=== PATIENT | female | born 1990 | race American Indian/Alaskan Native ===

== ENCOUNTER 2016-08-03 00:12 | Emergency (ER) | payer OTHER ==
[2016-08-03 01:06] LABS: Basophils % (Auto) 1.7 % (0.0-1.8); Eosinophils % (Auto) 1.3 % (0.0-4.3); Hematocrit 35.8 % (30.3-42.9); Hemoglobin 12.4 gm/dl (10.1-14.3); Mean Corpuscular HGB Conc 35 % (30-34); Mean Corpuscular Hemoglobin 31 pg (28-32); Mean Corpuscular Volume 88 fl (79-97); Platelet Count 321 K/mm3 (140-440); Red Blood Count 4.05 M/mm3 (3.65-5.03); Red Cell Distribution Width 13.6 % (13.2-15.2); White Blood Count 11.6 K/mm3 (4.5-11.0)
[2016-08-03 01:22] LABS: Bilirubin,Urine NEG (Negative); Blood,Urine NEG (Negative); Ketones,Urine 80 mg/dL (Negative); Leukocyte Esterase,Urine SM (Negative); Mucus,Urine 3+ /HPF; Nitrite,Urine NEG (Negative); Protein,Urine <15 mg/dL mg/dL (Negative); Urobilinogen,Urine < 2.0 mg/dL (<2.0)
[2016-08-03 01:29] LABS: Alanine Aminotransferase 8 units/L (7-56); Albumin 4.3 g/dL (3.9-5); Albumin/Globulin Ratio 1.4 %; Alkaline Phosphatase 60 units/L (35-129); Anion Gap 20 mmol/L; Bilirubin,Total < 0.20 mg/dL (0.1-1.2); Blood Urea Nitrogen 9 mg/dL (7-17); Calcium 9.2 mg/dL (8.4-10.2); Carbon Dioxide 20 mmol/L (22-30); Chloride 98.6 mmol/L (98-107); Glucose 97 mg/dL (65-100); Lipase 12 units/L (13-60); Potassium 3.5 mmol/L (3.6-5.0); Sodium 135 mmol/L (137-145); Total Protein 7.4 g/dL (6.3-8.2)
--- NOTE | 2016-08-03 03:19 | Ultrasound Report ---
FINAL REPORT PROCEDURE: US OB \T\lt; = 14 WEEKS FETUS TECHNIQUE: Real-time transabdominal sonography of the uterus, placenta, amniotic fluid, adnexa, and fetus was performed with image documentation. Measurements were obtained to determine age/size. M-mode Doppler was used to document heartbeat. CPT 81372 HISTORY: abd pn COMPARISON: No prior studies are available for comparison. FINDINGS: CRL: 18.1 mm, which corresponds to a gestational age of: 8 weeks, 2 days. Yolk Sac: Normal. Embryonic Cardiac Activity: 163 beats per minute Gestational Sac: Normal. Amniotic fluid: Normal. Cervix: Normal. Right Ovary: Normal. Left Ovary: Normal. Estimated delivery date: March 13, 2017 Uterus and adnexa: Normal. IMPRESSION: Single live intrauterine gestation at approximately 8 weeks and 2 days. EDC by US March 13, 2017
--- NOTE | 2016-08-03 03:19 | Ultrasound Report ---
FINAL REPORT PROCEDURE: US OB TRANSVAGINAL TECHNIQUE: Real-time TRANSVAGINAL sonography of the uterus, placenta, amniotic fluid, adnexa, and fetus was performed with image documentation. Measurements were obtained to determine age/size. M-mode Doppler was used to document heartbeat. HISTORY: abd pn COMPARISON: No prior studies are available for comparison. FINDINGS: CRL: 18.1 mm, which corresponds to a gestational age of: 8 weeks, 2 days. Yolk Sac: Normal. Embryonic Cardiac Activity: 163 beats per minute Gestational Sac: Normal. Amniotic fluid: Normal. Cervix: Normal. Right Ovary: Normal. Left Ovary: Normal. Estimated delivery date: March 13, 2017 Uterus and adnexa: Normal. IMPRESSION: Single live intrauterine gestation at approximately 8 weeks and 2 days. EDC by US March 13, 2017
[2016-08-03] MEDS ORDERED: NACL 0.9% 1000 ML 1,000 ML ONE (08:09)
[2016-08-03] MEDS ORDERED: ZOFRAN ONE (08:21)
[2016-08-03] MEDS ORDERED: ZOFRAN IV ONE (08:35)
--- NOTE | 2016-08-03 08:36 | Emergency Department Report ---
ED General Adult HPI - General Chief complaint: Abdominal Pain Stated complaint: SEVERE DEHYDRATION Time Seen by Provider: 08/03/16 08:01 Source: patient, RN notes reviewed Mode of arrival: Ambulatory Limitations: No Limitations - History of Present Illness Initial comments: This is a 26-year-old female. She is previously unknown to me. She is 2, para 1. Last menstrual period is June 11. Has a past medical history of hyperemesis gravidarum. Patient presents to the ER with nausea, vomiting, weakness, unintentional weight loss. She reports that it feels similar to prior episode of hyperemesis gravidarum. The patient denies abdominal pain. She admits to multiple episodes of nausea, vomiting and diarrhea. She denies vaginal bleeding. She denies irritative and obstructive urinary symptoms. She denies chest pain or shortness of breath. Her symptoms worsen when she eats and drinks. They decrease with rest. -: Gradual, days(s) Severity scale (0 -10): 0 Consistency: intermittent Improves with: rest Worsens with: eating Associated Symptoms: malaise, nausea/vomiting, weakness. denies: chest pain - Related Data Previous Rx's Medication Instructions Recorded Last Taken Type Doxylamine/Pyridoxine HCl 1 each PO QHS PRN #30 tablet. 08/03/16 Unknown Rx [Heriberto Hernandez 10-10 mg Tablet] Lulú Root [Lulú] 250 mg PO QID PRN #30 capsule 08/03/16 Unknown Rx Vit W-Ca,Fe,FA(<1 mg) 1 each PO QDAY #30 tablet 08/03/16 Unknown Rx [ Vitamins] Allergies Allergy/AdvReac Type Severity Reaction Status Date / Time sea food Allergy Headache Uncoded 08/03/16 00:30 ED Review of Systems ROS: Stated complaint: SEVERE DEHYDRATION Other details as noted in HPI Constitutional: denies: fever, malaise Eyes: denies: vision change ENT: denies: epistaxis Respiratory: denies: cough Cardiovascular: denies: chest pain Gastrointestinal: nausea, vomiting Genitourinary: as per HPI. denies: dysuria Musculoskeletal: as per HPI Skin: as per HPI Neurological: as per HPI Psychiatric: as per HPI ED Past Medical Hx - Past Medical History Previous Medical History?: No - Surgical History Past Surgical History?: No - Social History Smoking Status: Never Smoker Substance Use Type: Marijuana - Medications Home Medications: Home Medications Medication Instructions Recorded Confirmed Last Taken Type Doxylamine/Pyridoxine HCl 1 each PO QHS PRN #30 tablet. 08/03/16 Unknown Rx [Diclegis Dr 10-10 mg Tablet] Lulú Root [Lulú] 250 mg PO QID PRN #30 capsule 08/03/16 Unknown Rx Vit W-Ca,Fe,FA(<1 mg) 1 each PO QDAY #30 tablet 08/03/16 Unknown Rx [ Vitamins] ED Physical Exam - General Limitations: No Limitations General appearance: alert, in no apparent distress - Head Head exam: Present: atraumatic, normocephalic - Eye Eye exam: Present: normal appearance, EOMI. Absent: nystagmus - ENT ENT exam: Present: normal exam, normal orophraynx, mucous membranes moist, normal external ear exam - Neck Neck exam: Present: normal inspection, full ROM. Absent: tenderness, meningismus - Respiratory Respiratory exam: Present: normal lung sounds bilaterally. Absent: respiratory distress, wheezes, rales, rhonchi, stridor, chest wall tenderness, accessory muscle use, decreased breath sounds, prolonged expiratory - Cardiovascular Cardiovascular Exam: Present: regular rate, normal rhythm, normal heart sounds. Absent: bradycardia, tachycardia, irregular rhythm, systolic murmur, diastolic murmur, rubs, gallop - GI/Abdominal GI/Abdominal exam: Present: soft, normal bowel sounds. Absent: distended, tenderness, guarding, rebound, rigid, pulsatile mass - Extremities Exam Extremities exam: Present: normal inspection, full ROM, normal capillary refill. Absent: pedal edema, joint swelling, calf tenderness - Back Exam Back exam: Present: normal inspection, full ROM. Absent: tenderness, CVA tenderness (R), CVA tenderness (L), muscle spasm, paraspinal tenderness, vertebral tenderness - Neurological Exam Neurological exam: Present: alert, oriented X3, normal gait, other (Extraocular movements intact. Tongue midline. No facial droop. Facial sensation intact to light touch in the V1, V2, V3 distribution bilaterally. 5 and 5 strength in 4 extremities.. Sensation is intact to light touch in 4 extremities.). Absent : motor sensory deficit - Psychiatric Psychiatric exam: Present: normal affect, normal mood - Skin Skin exam: Present: warm, dry, intact, normal color. Absent: rash ED Course Vital Signs 08/03/16 08/03/16 08/03/16 00:15 07:59 08:00 Temperature 98.2 F 97.6 F Pulse Rate 70 65 Respiratory 18 18 Rate Blood Pressure 124/84 116/68 [Right] O2 Sat by Pulse 99 100 100 Oximetry 08/03/16 10:51 Temperature 97.9 F Pulse Rate 62 Respiratory 16 Rate Blood Pressure 120/82 [Right] O2 Sat by Pulse 100 Oximetry - Reevaluation(s) Reevaluation #1: 08/03/16 09:08 Differential diagnosis: Emesis gravidarum, dehydration and , incidental Assessment and plan: 26-year-old female who is found to be incidentally , she did not know that she was , with probable nausea and vomiting of , possible mild component of hyperemesis. She is afebrile with reassuring vital signs, denies abdominal pain to me, and there is a benign abdominal examination. Laboratory studies are unremarkable, obstetric ultrasound demonstrates appropriate interim . The patient will be treated with D5 half normal, and Zofran. Urinalysis demonstrates ketones in the urine, suggestive of dehydration 08/03/16 09:09 Reevaluation #2: 08/03/16 10:11 Patient feels improved. She is tolerating liquid feeds. She will be discharged at this time. ED Medical Decision Making - Lab Data Result diagrams: 08/03/16 00:46 08/03/16 00:46 Vital Signs 08/03/16 08/03/16 08/03/16 00:15 07:59 08:00 Temperature 98.2 F 97.6 F Pulse Rate 70 65 Respiratory 18 18 Rate Blood Pressure 124/84 116/68 [Right] O2 Sat by Pulse 99 100 100 Oximetry Lab Results 08/03/16 08/03/16 08/03/16 Range/Units 00:46 00:46 00:46 WBC 11.6 H (4.5-11.0) K/mm3 RBC 4.05 (3.65-5.03) M/mm3 Hgb 12.4 (10.1-14.3) gm/dl Hct 35.8 (30.3-42.9) % MCV 88 (79-97) fl MCH 31 (28-32) pg MCHC 35 H (30-34) % RDW 13.6 (13.2-15.2) % Plt Count 321 (140-440) K/mm3 Lymph % (Auto) 20.2 (13.4-35.0) % Swain % (Auto) 5.9 (0.0-7.3) % Eos % (Auto) 1.3 (0.0-4.3) % Baso % (Auto) 1.7 (0.0-1.8) % Lymph # 2.3 (1.2-5.4) K/mm3 Swain # 0.7 (0.0-0.8) K/mm3 Eos # 0.2 (0.0-0.4) K/mm3 Baso # 0.2 H (0.0-0.1) K/mm3 Seg Neutrophils % 70.9 H (40.0-70.0) % Seg Neutrophils # 8.2 H (1.8-7.7) K/mm3 Sodium 135 L (137-145) mmol/L Potassium 3.5 L (3.6-5.0) mmol/L Chloride 98.6 (98-107) mmol/L Carbon Dioxide 20 L (22-30) mmol/L Anion Gap 20 mmol/L BUN 9 (7-17) mg/dL Creatinine 0.5 L (0.7-1.2) mg/dL Estimated GFR > 60 ml/min BUN/Creatinine Ratio 18.00 % Glucose 97 (65-100) mg/dL Calcium 9.2 (8.4-10.2) mg/dL Total Bilirubin < 0.20 (0.1-1.2) mg/dL AST 10 (5-40) units/L ALT 8 (7-56) units/L Alkaline Phosphatase 60 (35-129) units/L Total Protein 7.4 (6.3-8.2) g/dL Albumin 4.3 (3.9-5) g/dL Albumin/Globulin Ratio 1.4 % Lipase 12 L (13-60) units/L HCG, Qual Positive (Negative) HCG, Quant (0-4) mIU/mL Urine Color (Yellow) Urine Turbidity (Clear) Urine pH (5.0-7.0) Ur Specific [place] (1.003-1.030) Urine Protein (Negative) mg/dL Urine Glucose (UA) (Negative) mg/dL Urine Ketones (Negative) mg/dL Urine Blood (Negative) Urine Nitrite (Negative) Urine Bilirubin (Negative) Urine Urobilinogen (<2.0) mg/dL Ur Leukocyte Esterase (Negative) Urine WBC (Auto) (0.0-6.0) /HPF Urine RBC (Auto) (0.0-6.0) /HPF U Epithel Cells (Auto) (0-13.0) /HPF Amorphous Crystals Urine Mucus /HPF 08/03/16 08/03/16 Range/Units 00:46 Unknown WBC (4.5-11.0) K/mm3 RBC (3.65-5.03) M/mm3 Hgb (10.1-14.3) gm/dl Hct (30.3-42.9) % MCV (79-97) fl MCH (28-32) pg MCHC (30-34) % RDW (13.2-15.2) % Plt Count (140-440) K/mm3 Lymph % (Auto) (13.4-35.0) % [place] % (Auto) (0.0-7.3) % Eos % (Auto) (0.0-4.3) % Baso % (Auto) (0.0-1.8) % Lymph # (1.2-5.4) K/mm3 [place] # (0.0-0.8) K/mm3 Eos # (0.0-0.4) K/mm3 Baso # (0.0-0.1) K/mm3 Seg Neutrophils % (40.0-70.0) % Seg Neutrophils # (1.8-7.7) K/mm3 Sodium (137-145) mmol/L Potassium (3.6-5.0) mmol/L Chloride (98-107) mmol/L Carbon Dioxide (22-30) mmol/L Anion Gap mmol/L BUN (7-17) mg/dL Creatinine (0.7-1.2) mg/dL Estimated GFR ml/min BUN/Creatinine Ratio % Glucose (65-100) mg/dL Calcium (8.4-10.2) mg/dL Total Bilirubin (0.1-1.2) mg/dL AST (5-40) units/L ALT (7-56) units/L Alkaline Phosphatase (35-129) units/L Total Protein (6.3-8.2) g/dL Albumin (3.9-5) g/dL Albumin/Globulin Ratio % Lipase (13-60) units/L HCG, Qual (Negative) HCG, Quant 77171 H (0-4) mIU/mL Urine Color Yellow (Yellow) Urine Turbidity Slightly-cloudy (Clear) Urine pH 7.0 (5.0-7.0) Ur Specific [place] 1.025 (1.003-1.030) Urine Protein <15 mg/dl (Negative) mg/dL Urine Glucose (UA) Neg (Negative) mg/dL Urine Ketones 80 (Negative) mg/dL Urine Blood Neg (Negative) Urine Nitrite Neg (Negative) Urine Bilirubin Neg (Negative) Urine Urobilinogen < 2.0 (<2.0) mg/dL Ur Leukocyte Esterase Sm (Negative) Urine WBC (Auto) 9.0 H (0.0-6.0) /HPF Urine RBC (Auto) 2.0 (0.0-6.0) /HPF U Epithel Cells (Auto) 19.0 H (0-13.0) /HPF Amorphous Crystals 1+ Urine Mucus 3+ /HPF - Radiology Data Radiology results: report reviewed, image reviewed Obstetrics ultrasound demonstrates an intrauterine gestation at 8 weeks and 2 days, appropriate heartbeat Critical care attestation.: If time is entered above; I have spent that time in minutes in the direct care of this critically ill patient, excluding procedure time. ED Disposition Clinical Impression: Nausea and vomiting during Disposition: DC-01 TO HOME OR SELFCARE Is pt being admited?: No Does the pt Need Aspirin: No Condition: Stable Instructions: Hyperemesis Gravidarum (ED) Additional Instructions: Take the medications as directed. Follow up with an [facility] doctor as soon as possible to start care. Return to the ER right away with severe pain, intractable nausea or vomiting, inability to tolerate fluids, liquid feeds, fevers, chills, chest pain or shortness of breath. Prescriptions: Doxylamine/Pyridoxine HCl [Heriberto Hernandez 10-10 mg Tablet] 1 each PO QHS PRN #30 tablet. PRN Reason: Nausea Lulú Root [Lulú] 250 mg PO QID PRN #30 capsule PRN Reason: Nausea Vit W-Ca,Fe,FA(<1 mg) [ Vitamins] 1 each PO QDAY #30 tablet Referrals: PRIMARY CARE, [Primary Care Provider] - 3-5 Days [facility] [Provider Group] - 3-5 Days [facility] [Provider Group] - 3-5 Days [facility] [Provider Group] - 3-5 Days Forms: Work/School Release Form(ED)
[2016-08-03] MEDS ORDERED: D5/0.45NS 1,000 ML IV SCH (09:00)
[2016-08-03 10:51] VITALS: BP 120/82
== END 2016-08-03 10:53 | disposition home or self-care (01) ==
LOC: ED 00:12
DX: O21.9 Vomiting of pregnancy, unspecified (principal); R11.0 Nausea; F12.90 Cannabis use, unspecified, uncomplicated; Z3A.08 8 weeks gestation of pregnancy; Z91.013 Allergy to seafood
CPT/HCPCS: 36415; 76801; 76817; 80053; 81001; 83690; 84702; 84703; 85025; 96374; 99284; J2405; J7030

== ENCOUNTER 2016-08-09 23:09 | Emergency (ER) | payer SELFPAY ==
[2016-08-10] MEDS ORDERED: ZOFRAN ODT PO ONE (00:31)
[2016-08-10 01:03] LABS: Basophils % (Auto) 0.6 % (0.0-1.8); Eosinophils % (Auto) 0.9 % (0.0-4.3); Hematocrit 38.9 % (30.3-42.9); Hemoglobin 13.5 gm/dl (10.1-14.3); Mean Corpuscular HGB Conc 35 % (30-34); Mean Corpuscular Hemoglobin 31 pg (28-32); Mean Corpuscular Volume 89 fl (79-97); Platelet Count 361 K/mm3 (140-440); Red Blood Count 4.37 M/mm3 (3.65-5.03); Red Cell Distribution Width 13.3 % (13.2-15.2)
[2016-08-10 01:22] LABS: Anion Gap 16 mmol/L; Blood Urea Nitrogen 7 mg/dL (7-17); Calcium 9.5 mg/dL (8.4-10.2); Carbon Dioxide 27 mmol/L (22-30); Chloride 95.6 mmol/L (98-107); Glucose 92 mg/dL (65-100); Sodium 136 mmol/L (137-145)
[2016-08-10 01:58] LABS: Bacteria,Urine 1+ /HPF (Negative); Bilirubin,Urine NEG (Negative); Blood,Urine NEG (Negative); Ketones,Urine 20 mg/dL (Negative); Leukocyte Esterase,Urine MOD (Negative); Mucus,Urine 3+ /HPF; Nitrite,Urine NEG (Negative)
[2016-08-10 10:37] VITALS: BP 92/52
[2016-08-10] MEDS ORDERED: K-DUR PO ONE (10:42)
[2016-08-10] MEDS ORDERED: NACL 0.9% 1000 ML 1,000 ML IV ONE (10:42)
--- NOTE | 2016-08-10 11:18 | Emergency Department Report ---
ED General Adult HPI - General Chief complaint: Abdominal Pain Stated complaint: L FLANK PAIN Time Seen by Provider: 08/10/16 10:08 Source: patient Mode of arrival: Ambulatory Limitations: No Limitations - History of Present Illness Initial comments: Patient states that she was seen here 2 weeks ago and informed that she was . She has a 8 week gestation on ultrasound which showed no abnormality. She states that she always has vomiting early in . She has been vomiting intermittently but not recurrently. She was given Zofran for nausea on her arrival here. The triage note states left flank pain yesterday. However, the patient states that she is just had some abdominal cramping and no left flank pain. She denies vaginal bleeding or discharge. She denies dysuria. Patient tells me that when she was at work last night she had an episode of tingling in her fingertips and lips. She was aware of her heart racing and probably she was breathing rapidly. She states that her rapid breathing and heart rate resolved fairly quickly. However she still has some tingling sensation intermittently but not currently. She's had no recent fever or chills. She denies headaches or any neurological change otherwise. -: Gradual Severity scale (0 -10): 0 Consistency: intermittent Improves with: none Worsens with: none Associated Symptoms: denies other symptoms (except as above described) Treatments Prior to Arrival: none - Related Data Previous Rx's Medication Instructions Recorded Last Taken Type Doxylamine/Pyridoxine HCl 1 each PO QHS PRN #30 tablet. 08/03/16 Unknown Rx [Heriberto Hernandez 10-10 mg Tablet] Lulú Root [Lulú] 250 mg PO QID PRN #30 capsule 08/03/16 Unknown Rx Vit W-Ca,Fe,FA(<1 mg) 1 each PO QDAY #30 tablet 08/03/16 Unknown Rx [ Vitamins] Allergies Allergy/AdvReac Type Severity Reaction Status Date / Time sea food Allergy Headache Uncoded 08/03/16 00:30 ED Review of Systems ROS: Stated complaint: L FLANK PAIN Other details as noted in HPI Constitutional: denies: chills, fever Eyes: denies: eye pain, eye discharge, vision change ENT: denies: ear pain, throat pain Respiratory: denies: cough, shortness of breath, wheezing Cardiovascular: denies: chest pain, palpitations Endocrine: no symptoms reported Gastrointestinal: nausea, vomiting. denies: abdominal pain, diarrhea Genitourinary: denies: urgency, dysuria, discharge Musculoskeletal: denies: back pain, joint swelling, arthralgia Skin: denies: rash, lesions Neurological: denies: headache, weakness, paresthesias Psychiatric: denies: anxiety, depression Hematological/Lymphatic: denies: easy bleeding, easy bruising ED Past Medical Hx - Past Medical History Previous Medical History?: No - Surgical History Past Surgical History?: No - Social History Smoking Status: Never Smoker Substance Use Type: None - Medications Home Medications: Home Medications Medication Instructions Recorded Confirmed Last Taken Type Doxylamine/Pyridoxine HCl 1 each PO QHS PRN #30 tablet.dr 08/03/16 Unknown Rx [Diclegis Dr 10-10 mg Tablet] Lulú Root [Lulú] 250 mg PO QID PRN #30 capsule 08/03/16 Unknown Rx Vit W-Ca,Fe,FA(<1 mg) 1 each PO QDAY #30 tablet 08/03/16 Unknown Rx [ Vitamins] ED Physical Exam - General Limitations: No Limitations General appearance: alert, in no apparent distress - Head Head exam: Present: atraumatic, normocephalic - Eye Eye exam: Present: normal appearance. Absent: scleral icterus - ENT ENT exam: Present: normal exam, mucous membranes moist - Neck Neck exam: Present: normal inspection. Absent: tenderness, meningismus - Respiratory Respiratory exam: Present: normal lung sounds bilaterally. Absent: respiratory distress - Cardiovascular Cardiovascular Exam: Present: regular rate, normal rhythm. Absent: systolic murmur, diastolic murmur, rubs, gallop - GI/Abdominal GI/Abdominal exam: Present: soft, normal bowel sounds. Absent: distended, tenderness, guarding, rebound, rigid - Extremities Exam Extremities exam: Present: normal inspection - Back Exam Back exam: Present: normal inspection - Neurological Exam Neurological exam: Present: alert, oriented X3, CN II-XII intact. Absent: motor sensory deficit - Psychiatric Psychiatric exam: Present: normal affect, normal mood - Skin Skin exam: Present: warm, dry, intact, normal color. Absent: rash ED Course Vital Signs 08/10/16 08/10/16 08/10/16 00:26 05:41 06:52 Temperature 98.4 F Pulse Rate 61 64 Respiratory 16 12 Rate Blood Pressure 113/84 118/77 Blood Pressure 113/84 [Left] O2 Sat by Pulse 100 100 100 Oximetry 08/10/16 08/10/16 08/10/16 07:00 07:10 07:20 Temperature Pulse Rate Respiratory Rate Blood Pressure 115/72 118/76 122/79 Blood Pressure [Left] O2 Sat by Pulse 100 100 100 Oximetry 08/10/16 08/10/16 08/10/16 07:30 07:36 07:40 Temperature Pulse Rate Respiratory 12 Rate Blood Pressure 112/70 112/70 Blood Pressure [Left] O2 Sat by Pulse 100 100 100 Oximetry 08/10/16 08/10/16 08/10/16 07:50 08:00 08:10 Temperature Pulse Rate Respiratory Rate Blood Pressure 99/62 99/62 103/64 Blood Pressure [Left] O2 Sat by Pulse 100 55 L 100 Oximetry 08/10/16 08/10/16 08/10/16 08:20 08:31 08:41 Temperature Pulse Rate Respiratory Rate Blood Pressure 106/72 112/70 105/63 Blood Pressure [Left] O2 Sat by Pulse 100 100 100 Oximetry 08/10/16 08/10/16 08/10/16 08:51 09:00 09:11 Temperature Pulse Rate Respiratory Rate Blood Pressure 98/62 108/70 108/70 Blood Pressure [Left] O2 Sat by Pulse 100 99 100 Oximetry 08/10/16 08/10/16 08/10/16 09:21 09:30 09:41 Temperature Pulse Rate Respiratory Rate Blood Pressure 105/62 103/65 98/62 Blood Pressure [Left] O2 Sat by Pulse 100 100 98 Oximetry 08/10/16 08/10/16 08/10/16 09:51 10:00 10:11 Temperature Pulse Rate Respiratory Rate Blood Pressure 106/66 105/82 105/82 Blood Pressure [Left] O2 Sat by Pulse 100 100 100 Oximetry 08/10/16 10:21 Temperature Pulse Rate Respiratory Rate Blood Pressure 92/52 Blood Pressure [Left] O2 Sat by Pulse 100 Oximetry - Reevaluation(s) Reevaluation #1: Given IV fluids and oral potassium. Patient was discharged in good condition and her symptoms resolved. 08/10/16 11:18 ED Medical Decision Making - Lab Data Result diagrams: 08/10/16 00:46 08/10/16 00:46 Critical care attestation.: If time is entered above; I have spent that time in minutes in the direct care of this critically ill patient, excluding procedure time. ED Disposition Clinical Impression: Nausea and vomiting during , Hypokalemia Disposition: - TO HOME OR SELFCARE Is pt being admited?: No Does the pt Need Aspirin: No Condition: Stable Instructions: Abdominal Pain (ED), Hypokalemia (ED), (ED), Morning Sickness (ED) Additional Instructions: Follow-up with OB doctor. Return any acute change or problem. Potassium rich diet. Referrals: PRIMARY CARE, [Primary Care Provider] - 3-5 Days Time of Disposition: 11:21
== END 2016-08-10 13:12 | disposition home or self-care (01) ==
LOC: ED 23:09
DX: O21.9 Vomiting of pregnancy, unspecified (principal); O26.891 Other specified pregnancy related conditions, first trimester; E87.6 Hypokalemia; R11.2 Nausea with vomiting, unspecified; Z91.013 Allergy to seafood
CPT/HCPCS: 36415; 80048; 81001; 85025; 96360; 96361; 99283; J7030; Q0162

== ENCOUNTER 2018-02-24 12:52 | Emergency (ER) | payer MEDICAID, OTHER ==
[2018-02-24 13:10] VITALS: BP 103/62
[2018-02-24] MEDS ORDERED: NACL 0.9% 1000 ML 1,000 ML IV ONE (13:21)
[2018-02-24] MEDS ORDERED: REGLAN IV ONE (13:21)
[2018-02-24 13:47] LABS: Bacteria,Urine 1+ /HPF (Negative); Bilirubin,Urine NEG (Negative); Blood,Urine NEG (Negative); Color,Urine Yellow (Yellow); Mucus,Urine 2+ /HPF; Protein,Urine <15 mg/dL mg/dL (Negative); Urobilinogen,Urine < 2.0 mg/dL (<2.0)
[2018-02-24 13:59] LABS: Basophils # (Auto) 0.1 K/mm3 (0.0-0.1); Basophils % (Auto) 0.7 % (0.0-1.8); Eosinophils # (Auto) 0.2 K/mm3 (0.0-0.4); Eosinophils % (Auto) 2.3 % (0.0-4.3); Hematocrit 36.1 % (30.3-42.9); Hemoglobin 12.3 gm/dl (10.1-14.3); Lymphocytes # (Auto) 2.3 K/mm3 (1.2-5.4); Lymphocytes % (Auto) 29.4 % (13.4-35.0); Mean Corpuscular HGB Conc 34 % (30-34); Mean Corpuscular Volume 90 fl (79-97); Monocytes # (Auto) 0.5 K/mm3 (0.0-0.8); Monocytes % (Auto) 5.9 % (0.0-7.3); Platelet Count 328 K/mm3 (140-440); Red Blood Count 4.02 M/mm3 (3.65-5.03); Red Cell Distribution Width 12.5 % (13.2-15.2)
--- NOTE | 2018-02-24 14:02 | Emergency Department Report ---
ED N/V/D HPI - General Chief complaint: Nausea/Vomiting/Diarrhea Stated complaint: /DEHYDRATION Time Seen by Provider: 02/24/18 13:10 Source: patient Mode of arrival: Ambulatory Limitations: No Limitations - History of Present Illness Initial comments: This is a 28-year-old female nontoxic, well nourished in appearance, no acute signs of distress presents to the ED with c/o of nausea and vomiting 3 days. Patient stated she is unsure if she is . LMP was 11/23/2017. Patient describes vomiting as food content. Patient denies any abdominal pain, pelvic pain, chest pain, short of breath, fever, chills, headache, stiff neck, numbness or tingling. Patient denies any diarrhea or constipation. Patient denies any vaginal bleeding or urinary symptoms. Patient denies any recent travels. Patient denies any drug allergies significant past medical history. MD complaint: nausea, vomiting -: days(s) (3) Description of Vomiting: food contents Associated Abdominal Pain: No Radiation: none Pain Scale: 0 Improves with: none Worsens with: none Associated Symptoms: denies other symptoms. denies: myalgias, chest pain, cough, diaphoresis, fever/chills, headaches, loss of appetite, malaise, nausea/vomiting, rash, dysuria, shortness of breath, syncope, weakness - Related Data Previous Rx's Medication Instructions Recorded Last Taken Type Doxylamine Succinate/Vit B6 1 each PO QHS PRN #30 tablet. 08/03/16 Unknown Rx [Heriberto Hernandez 10-10 mg Tablet] Lulú Root [Lulú] 250 mg PO QID PRN #30 capsule 08/03/16 Unknown Rx Vit Calc,Iron,Folic 1 each PO QDAY #30 tablet 08/03/16 Unknown Rx [ Vitamins] Metoclopramide [Reglan] 10 mg PO TID PRN #30 tab 02/24/18 Unknown Rx 21/Iron Fu/Folic Acid 1 each PO DAILY #30 tablet 02/24/18 Unknown Rx [ Complete Caplet] Allergies Allergy/AdvReac Type Severity Reaction Status Date / Time sea food Allergy Headache Uncoded 08/03/16 00:30 ED Review of Systems ROS: Stated complaint: /DEHYDRATION Other details as noted in HPI Constitutional: denies: chills, fever Eyes: denies: eye pain, eye discharge, vision change ENT: denies: ear pain, throat pain Respiratory: denies: cough, shortness of breath, wheezing Cardiovascular: denies: chest pain, palpitations Endocrine: no symptoms reported Gastrointestinal: nausea, vomiting. denies: abdominal pain, diarrhea Genitourinary: denies: urgency, dysuria, discharge Musculoskeletal: denies: back pain, joint swelling, arthralgia Skin: denies: rash, lesions Neurological: denies: headache, weakness, paresthesias Psychiatric: denies: anxiety, depression Hematological/Lymphatic: denies: easy bleeding, easy bruising ED Past Medical Hx - Past Medical History Previous Medical History?: No - Surgical History Past Surgical History?: No - Social History Smoking Status: Current Every Day Smoker Substance Use Type: Marijuana - Medications Home Medications: Home Medications Medication Instructions Recorded Confirmed Last Taken Type Doxylamine Succinate/Vit B6 1 each PO QHS PRN #30 tablet. 08/03/16 Unknown Rx [Heriberto Dr 10-10 mg Tablet] Lulú Root [Lulú] 250 mg PO QID PRN #30 capsule 08/03/16 Unknown Rx Vit Calc,Iron,Folic 1 each PO QDAY #30 tablet 08/03/16 Unknown Rx [ Vitamins] Metoclopramide [Reglan] 10 mg PO TID PRN #30 tab 02/24/18 Unknown Rx 21/Iron Fu/Folic Acid 1 each PO DAILY #30 tablet 02/24/18 Unknown Rx [ Complete Caplet] ED Physical Exam - General Limitations: No Limitations General appearance: alert, in no apparent distress - Head Head exam: Present: atraumatic, normocephalic - Eye Eye exam: Present: normal appearance - Neck Neck exam: Present: normal inspection, full ROM - Respiratory Respiratory exam: Present: normal lung sounds bilaterally. Absent: respiratory distress, wheezes, rales, rhonchi, stridor, chest wall tenderness, accessory muscle use, decreased breath sounds, prolonged expiratory - Cardiovascular Cardiovascular Exam: Present: regular rate, normal rhythm, normal heart sounds. Absent: bradycardia, tachycardia, irregular rhythm, systolic murmur, diastolic murmur, rubs, gallop - GI/Abdominal GI/Abdominal exam: Present: soft, normal bowel sounds. Absent: distended, tenderness, guarding, rebound, rigid, diminished bowel sounds - Extremities Exam Extremities exam: Present: normal inspection, full ROM - Back Exam Back exam: Present: normal inspection, full ROM - Neurological Exam Neurological exam: Present: alert, oriented X3 - Psychiatric Psychiatric exam: Present: normal affect, normal mood - Skin Skin exam: Present: warm, dry, intact, normal color. Absent: rash ED Course Vital Signs 02/24/18 02/24/18 02/24/18 13:02 13:46 14:10 Temperature 98.3 F Pulse Rate 68 Respiratory 18 16 Rate Blood Pressure 103/62 O2 Sat by Pulse 100 Oximetry - Reevaluation(s) Reevaluation #1: 02/24/18 14:06 Patient is speaking in full sentences with no signs of distress noted. ED Medical Decision Making - Lab Data Result diagrams: 02/24/18 13:37 02/24/18 13:38 - Medical Decision Making This is a 28-year-old female that presents with nausea and vomiting with positive . Patient is stable and was examined by me. There is no abdominal tenderness. Negative signs of symptoms of appendicitis. Labs obtained. Vital signs are stable prior to discharge. Patient received Reglan and 1L Normal saline in the ED which patient stated symptoms has resolved and subsided. A by mouth challenge has been obtained and patient tolerated well wit h no nausea vomiting. Patient was also instructed to Follow-up with a OBGYN doctor in 3-5 days or if symptoms worsen and continue return to emergency room as soon as possible. At time of discharge, the patient does not seem toxic or ill in appearance. No acute signs of distress noted. Patient agrees to discharge treatment plan of care. No further questions noted by the patient. Critical care attestation.: If time is entered above; I have spent that time in minutes in the direct care of this critically ill patient, excluding procedure time. ED Disposition Clinical Impression: test positive, Hyperemesis gravidarum Disposition: TO HOME OR SELFCARE Is pt being admited?: No Does the pt Need Aspirin: No Condition: Stable Instructions: Hyperemesis Gravidarum (ED), (ED) Additional Instructions: Follow-up with a OBGYN doctor in 3-5 days or if symptoms worsen and continue return to emergency room as soon as possible. Prescriptions: Metoclopramide [Reglan] 10 mg PO TID PRN #30 tab PRN Reason: Nausea 21/Iron Fu/Folic Acid [ Complete Caplet] 1 each PO DAILY #30 tablet Referrals: PRIMARY CAREMD [Referring] - 3-5 Days JOSEE LOREDO MD [Staff Physician] - 3-5 Days [facility] [Provider Group] - 3-5 Days Forms: Work/School Release Form(ED)
[2018-02-24 14:13] LABS: Alanine Aminotransferase 7 units/L (7-56); Albumin 4.1 g/dL (3.9-5); BUN/Creatinine Ratio 16; Blood Urea Nitrogen 8 mg/dL (7-17); Calcium 9.2 mg/dL (8.4-10.2); Hemolysis Index 34
[2018-02-24 14:14] LABS: Bilirubin,Direct < 0.2 mg/dL (0-0.2)
== END 2018-02-24 14:55 | disposition home or self-care (01) ==
LOC: ED 12:52
DX: O21.0 Mild hyperemesis gravidarum (principal); O99.331 Smoking (tobacco) complicating pregnancy, first trimester; F12.10 Cannabis abuse, uncomplicated; Z91.013 Allergy to seafood; Z3A.12 12 weeks gestation of pregnancy
CPT/HCPCS: 36415; 80048; 80076; 81001; 83690; 84702; 85025; 96361; 96374; 99283; J2765

== ENCOUNTER 2020-04-09 15:05 | Emergency (ER) | payer SELFPAY ==
[2020-04-09 16:39] VITALS: BP 126/85
[2020-04-09] MEDS ORDERED: METOCLOPRAMIDE 10 MG/2 ML INJ IV ONE (16:43)
[2020-04-09] MEDS ORDERED: SODIUM CHLORIDE 0.9% 1000 ML 1,000 ML IV ONE (16:43)
[2020-04-09] MEDS ORDERED: METOCLOPRAMIDE 10 MG TAB PO ONE (16:45)
[2020-04-09 17:04] LABS: Basophils % (Auto) 0.4 % (0.0-1.8); Eosinophils # (Auto) 0.3 K/mm3 (0.0-0.4); Eosinophils % (Auto) 2.8 % (0.0-4.3); Hematocrit 32.8 % (30.3-42.9); Hemoglobin 11.4 gm/dl (10.1-14.3); Lymphocytes # (Auto) 2.8 K/mm3 (1.2-5.4); Lymphocytes % (Auto) 27.5 % (13.4-35.0); Mean Corpuscular HGB Conc 35 % (30-34); Mean Corpuscular Volume 92 fl (79-97); Monocytes # (Auto) 0.9 K/mm3 (0.0-0.8); Monocytes % (Auto) 8.7 % (0.0-7.3); Platelet Count 335 K/mm3 (140-440); Red Blood Count 3.55 M/mm3 (3.65-5.03); Red Cell Distribution Width 13.3 % (13.2-15.2)
[2020-04-09 17:27] LABS: Alanine Aminotransferase 6 units/L (7-56); Albumin 3.5 g/dL (3.9-5); Blood Urea Nitrogen 5 mg/dL (7-17); Calcium 8.4 mg/dL (8.4-10.2); Hemolysis Index 2
[2020-04-09 17:30] LABS: BUN/Creatinine Ratio 8
[2020-04-09] MEDS ORDERED: POTASSIUM CHLORIDE ER 20 MEQ TAB PO ONE (17:38)
--- NOTE | 2020-04-09 17:47 | Emergency Department Report ---
Vomiting/Diarrhea - HPI Chief Complaint: Nausea/Vomiting/Diarrhea Stated Complaint: PREG/DEHYDRATION Time Seen by Provider: 04/09/20 16:39 Duration: 1 week Severity: mild Nausea/Vomiting Severity: Mild Diarrhea Severity: None Pain Severity: None Symptoms: Yes Able to Tolerate Fluids, No Watery Diarrhea, No Bloody diarrhea, No Fever, No Recent Unusual Foods, No Recent Untreated Water, No Recent use of Antibiotics, No Family w/ Similar Symptoms, No Contacts w/ Similar Symptoms, No Rash, No Hematuria, No Recent URI Symptoms Other History: This is a 30-year-old female nontoxic, well nourished in appearance, no acute signs of distress presents to the ED with c/o of nausea and vomiting 1 week. Patient stated she is unsure how far along she is but had a positive test at home. Patient denies any pelvic pain. Denies any vaginal bleeding. Denies any flank or back pain. Patient denies any other complaints or symptoms. Patient describes vomiting as food content. Pat ient denies any abdominal pain, chest pain, short of breath, fever, chills, headache, stiff neck, numbness or tingling. Patient denies any diarrhea or constipation. Denies any blood in stool. Patient denies any recent travels. Patient denies any drug allergies significant past medical history. ED Review of Systems ROS: Stated complaint: PREG/DEHYDRATION Other details as noted in HPI Comment: All other systems reviewed and negative Constitutional: denies: chills, fever Eyes: denies: eye pain, eye discharge, vision change ENT: denies: ear pain, throat pain Respiratory: denies: cough, shortness of breath, wheezing Cardiovascular: denies: chest pain, palpitations Endocrine: no symptoms reported Gastrointestinal: nausea, vomiting. denies: abdominal pain, diarrhea, constipation, hematemesis, melena, hematochezia Genitourinary: denies: urgency, dysuria, frequency, hematuria, discharge, abnormal menses, dyspareunia Musculoskeletal: denies: back pain, joint swelling, arthralgia Skin: denies: rash, lesions Neurological: denies: headache, weakness, paresthesias Psychiatric: denies: anxiety, depression Hematological/Lymphatic: denies: easy bleeding, easy bruising ED Past Medical Hx - Past Medical History Previous Medical History?: No - Surgical History Past Surgical History?: No - Social History Smoking Status: Current Every Day Smoker Substance Use Type: Marijuana - Medications Home Medications: Home Medications Medication Instructions Recorded Confirmed Last Taken Type Doxylamine Succinate/Vit B6 1 each PO QHS PRN #30 tablet. 08/03/16 Unknown Rx [Heriberto Hernandez 10-10 mg Tablet] Lulú Root [Lulú] 250 mg PO QID PRN #30 capsule 08/03/16 Unknown Rx Vit Calc,Iron,Folic 1 each PO QDAY #30 tablet 08/03/16 Unknown Rx [ Vitamins] Metoclopramide [Reglan] 10 mg PO TID PRN #30 tab 02/24/18 Unknown Rx 21/Iron Fu/Folic Acid 1 each PO DAILY #30 tablet 02/24/18 Unknown Rx [ Complete Caplet] Metoclopramide [Reglan] 10 mg PO Q12H PRN #12 tab 04/09/20 Unknown Rx 21/Iron Fu/Folic Acid 1 each PO DAILY #30 tablet 04/09/20 Unknown Rx [ Complete Caplet] Vomiting Diarrhea Exam - Exam General: Vital signs noted. No distress. Alert and acting appropriately. HEENT: Yes Moist Mucous Membranes, No Pharyngeal Erythema, No Pharyngeal Exudates, No Rhinorrhea, No Conjuctival Injection, No Frontal Tenderness, No Maxillary Tenderness Neck: No Adenopathy, No Rigidity Lungs: Yes Clear Lung Sounds, Yes Good Air Exchange, No Wheezes, No Stridor, No Cough, No Nasal Flaring, No Retractions, No Use of Accessory Muscles Heart exam: Regular: Yes, Murmur: No, Tachycardia: No Abdomen: Tenderness: No, Peritoneal Signs: No, Distention: No, Hyperactive Bowel sounds: No Skin exam: Rash: No, Edema: No, Normal turgor: Yes Neurologic: Alert and oriented, no deficits. Musculoskeletal: Unremarkable. ED Course Vital Signs 04/09/20 16:38 Temperature 98.5 F Pulse Rate 85 Respiratory 18 Rate Blood Pressure 126/85 O2 Sat by Pulse 100 Oximetry - Reevaluation(s) Reevaluation #1: 04/09/20 17:46 Patient is speaking in full sentences with no signs of distress noted. ED Medical Decision Making - Lab Data Result diagrams: 04/09/20 16:41 04/09/20 16:41 Lab Results 04/09/20 04/09/20 04/09/20 Range/Units 16:41 16:41 16:41 WBC 10.2 (4.5-11.0) K/mm3 RBC 3.55 L (3.65-5.03) M/mm3 Hgb 11.4 (10.1-14.3) gm/dl Hct 32.8 (30.3-42.9) % MCV 92 (79-97) fl MCH 32 (28-32) pg MCHC 35 H (30-34) % RDW 13.3 (13.2-15.2) % Plt Count 335 (140-440) K/mm3 Lymph % (Auto) 27.5 (13.4-35.0) % [place] % (Auto) 8.7 H (0.0-7.3) % Eos % (Auto) 2.8 (0.0-4.3) % Baso % (Auto) 0.4 (0.0-1.8) % Lymph # (Auto) 2.8 (1.2-5.4) K/mm3 [place] # (Auto) 0.9 H (0.0-0.8) K/mm3 Eos # (Auto) 0.3 (0.0-0.4) K/mm3 Baso # (Auto) 0.0 (0.0-0.1) K/mm3 Seg Neutrophils % 60.6 (40.0-70.0) % Seg Neutrophils # 6.2 (1.8-7.7) K/mm3 Sodium 136 L (137-145) mmol/L Potassium 3.3 L (3.6-5.0) mmol/L Chloride 104.4 (98-107) mmol/L Carbon Dioxide 22 (22-30) mmol/L Anion Gap 13 mmol/L BUN 5 L (7-17) mg/dL Creatinine 0.6 (0.6-1.2) mg/dL Estimated GFR > 60 ml/min BUN/Creatinine Ratio 8 % Glucose 79 (65-100) mg/dL Calcium 8.4 (8.4-10.2) mg/dL Total Bilirubin < 0.20 (0.1-1.2) mg/dL AST 9 (5-40) units/L ALT 6 L (7-56) units/L Alkaline Phosphatase 105 (35-129) units/L Total Protein 6.6 (6.3-8.2) g/dL Albumin 3.5 L (3.9-5) g/dL Albumin/Globulin Ratio 1.1 % HCG, Quant 5857 H (0-4) mIU/mL - Medical Decision Making This is a 30-year-old female that presents with nausea and vomiting. Patient is stable and was examined by me. There is no abdominal tenderness. Negative signs of symptoms of appendicitis, cholecystitis or acute abdomen. Labs obtained. Vital signs are stable prior to discharge. Patient received potassium chloride and Reglan p.o. in the ED which patient stated symptoms has resovled and subsided. A by mouth challenge has been obtained and patient tolerated well with no nausea vomiting. Patient was also instructed to Follow-up with a PERIPATOLOGIST doctor in 3-5 days or if symptoms worsen and continue return to emergency room as soon as possible. At time of discharge, the patient does not seem toxic or ill in appearance. No acute signs of distress noted. Patient agrees to discharge treatment plan of care. No further questions noted by the patient. Critical care attestation.: If time is entered above; I have spent that time in minutes in the direct care of this critically ill patient, excluding procedure time. ED Disposition Clinical Impression: Hypokalemia, Hyperemesis gravidarum Disposition: DC- TO HOME OR SELFCARE Is pt being admited?: No Does the pt Need Aspirin: No Condition: Stable Instructions: Hyperemesis Gravidarum, Potassium Content of Foods Additional Instructions: Follow-up with a PERIPATOLOGIST doctor in 3-5 days or if symptoms worsen and continue return to emergency room as soon as possible. Prescriptions: 21/Iron Fu/Folic Acid [ Complete Caplet] 1 each PO DAILY #30 tablet Metoclopramide [Reglan] 10 mg PO Q12H PRN #12 tab PRN Reason: Nausea Referrals: PRIMARY CAREMD [Primary Care Provider] - 3-5 Days [facility] [Provider Group] - 3-5 Days [facility] [Provider Group] - 3-5 Days Forms: Work/School Release Form(ED) Time of Disposition: 18:17
== END 2020-04-09 19:06 | disposition home or self-care (01) ==
LOC: ED 15:05
DX: O21.0 Mild hyperemesis gravidarum (principal); O26.891 Other specified pregnancy related conditions, first trimester; E87.6 Hypokalemia; Z3A.01 Less than 8 weeks gestation of pregnancy; O99.331 Smoking (tobacco) complicating pregnancy, first trimester; Z91.013 Allergy to seafood
CPT/HCPCS: 36415; 80053; 84702; 85025; 99283

== ENCOUNTER 2020-06-18 11:02 | Outpatient (CLI) | payer OTHER ==
[2020-06-18 11:44] VITALS: BP 117/75
== END 2020-06-18 12:35 | disposition home or self-care (01) ==
LOC: TRG 11:02 → APU 11:03 → TRG 12:35
PROVIDERS: ATTEND Obstetrics & Gynecology
DX: Z34.93 Encounter for supervision of normal pregnancy, unspecified, third trimester (principal); Z3A.38 38 weeks gestation of pregnancy
CPT/HCPCS: 59025

== ENCOUNTER 2020-06-30 05:35 | Inpatient (IN) | payer OTHER ==
[2020-06-30] MEDS ORDERED: ONDANSETRON 4 MG/2 ML INJ IV PRN ×2 (06:22→14:31)
[2020-06-30] MEDS ORDERED: METHYLERGONOVINE MALEATE 0.2 MG/ML VIAL IM PRN (06:22)
[2020-06-30] MEDS ORDERED: ePHEDrine SULFATE 50 MG/1 ML INJ IV PRN ×2 (06:22→07:14)
[2020-06-30] MEDS ORDERED: OXYTOCIN 10 UNIT/1 ML INJ IM PRN (06:22)
[2020-06-30] MEDS ORDERED: ACETAMINOPHEN 325 MG TAB PO PRN ×2 (06:22→14:31)
[2020-06-30] MEDS ORDERED: NALOXONE 0.4 MG/1 ML INJ IV PRN (06:22)
[2020-06-30] MEDS ORDERED: miSOPROStol 200 MCG TAB PR PRN (06:22)
[2020-06-30] MEDS ORDERED: fentaNYL 100 MCG/2 ML INJ IV PRN (06:22)
[2020-06-30] MEDS ORDERED: LIDOCAINE (2%) 20 MG/1 ML VIAL 20 ML MDV INFILTRATI ONE (06:22)
[2020-06-30] MEDS ORDERED: PROMETHAZINE 25 MG TAB PO PRN ×2 (06:22→14:31)
[2020-06-30] MEDS ORDERED: MINERAL OIL 30 ML ORAL LIQD PO PRN (06:22)
[2020-06-30] MEDS ORDERED: TERBUTALINE 1 MG/1 ML INJ SUB-Q PRN (06:22)
[2020-06-30] MEDS ORDERED: LOPERAMIDE 2 MG CAP PO PRN (06:22)
[2020-06-30] MEDS ORDERED: CARBOPROST TROMETHAMINE 250 MCG/1 ML INJ IM PRN (06:22)
[2020-06-30] MEDS ORDERED: LACTATED RINGERS 1,000 ML IV SCH (06:30)
[2020-06-30 06:49] LABS: Hematocrit 30.8 % (30.3-42.9); Mean Corpuscular HGB Conc 36 % (30-34); Mean Corpuscular Volume 86 fl (79-97); Platelet Count 331 K/mm3 (140-440); Red Blood Count 3.57 M/mm3 (3.65-5.03); Red Cell Distribution Width 13.2 % (13.2-15.2)
--- NOTE | 2020-06-30 06:52 | History and Physical Report ---
<NICOLAS MONTIEL D - Last Filed: 06/30/20 08:01> History of Present Illness Date of admission: 06/30/20 06:23 History of present illness: Past History : 4 Term Births: 1 Premature Births: 0 Living Children: 1 Para: 1 Mult. Births: 0 Prev : 0 Aborta: 2 Elect. Ab: 1 Spont. Ab: 1 Ectopics: 0 # 1 Delivery date: 2010 Delivery type: EAB # 2 Delivery date: 01/30/2015 Weeks Gestation: 40 labor: no Delivery type: Hours of labor: 10 Anesthesia type: epidural Delivery location: [facility] Sex: Male weight: 6-10 Name: Jazmin # 3 Delivery date: 2015 Weeks Gestation: 12 Delivery type: SAB Comments: D&C Risk Factors: Smoked Tobacco Use: Never smoker Smokeless Tobacco Use: Never Drug use: yes Substance: marijuana Comments: every few days HIV high-risk behavior: no Alcohol use: no Exercise: yes Times per week: walking Seatbelt use: 100 % Dietary Counseling: pn yes PAP Smear History: Date of Last PAP Smear: 03/01/2019 Results: Normal, per pt Past Medical History: Negative Past Medical History Past Surgical History: D&C: (2010) D&C: (2015) Family History Summary: Other Family Member - Has No Family History of Ovarvian Cancer - Entered On: 05/31/2020 Other Family Member - Has No Family History of Colon Cancer - Entered On: 05/31/2020 Other Family Member - Has No Family History of Breast Cancer - Entered On: 05/31/2020 Other Family Member - Has Family History of Hypertension - Entered On: 05/31/2020 Other Family Member - Has Family History of Diabetes - Entered On: 05/31/2020 Other Family Member - Has Family History of Coronary Heart Disease - Entered On: 05/31/2020 Social History: Marital Status: Single Children: 1 Occupation: employment Smoking History: Patient has never smoked. Past Medical History Surgery (Non-multifocal button generator): D&C: (2010) D&C: (2015) Abnormal PAP: negative Uterine Anomaly: negative Social Hx: Marital Status: Single Children: 1 Occupation: employment Smoking History: Patient has never smoked. Infection History Hx of STD: chlamydia HIV Risk Eval: no Hepatitis B Risk Eval: low risk Personal hx. of genital herpes: no Genetic History Congenital Heart Defect: Mom: no Dad: no Patricio Disease: Mom: no Dad: no Thalassemia Mom: no Dad: no Neural Tube Defect Mom: no Dad: no Down's Syndrome Mom: no Dad: no Wyatt-Sachs Mom: no Dad: no Sickle Cell Disease/Trait Mom: no Dad: no Hemophilia Mom: no Dad: no Muscular Dystrophy Mom: no Dad: no Cystic Fibrosis Mom: no Dad: no Hudson Chorea Mom: no Dad: no Mental Retardation Mom: no Dad: no Fragile X Mom: no Dad: no Other Genetic/Chromosomal Disorder Mom: no Dad: no Child w/other defect Mom: no Dad: no Enviromental Exposures Xray Exposure: no Medication, drug, or alcohol use since LMP: yes Exposure to Cat Liter: no Hx of Parvovirus (Fifth Disease): no Active Medications (reviewed today): None Current Allergies (reviewed today): * SHELLFISH (Critical) HBsAg Screen Negative Negative *1 RPR Non Reactive Non Reactive *2 Rubella Antibodies, IgG 1.29 index Immune >0.99 *3 Non-immune <0.90 Equivocal 0.90 - 0.99 Immune >0.99 ABO Grouping A *4 Rh Factor Negative *5 Please note: Prior records for this patient's ABO / Rh type are not available for additional verification. Antibody Screen Negative Negative *6 WBC 8.7 x10E3/uL 3.4-10.8 *7 RBC [L] 3.43 x10E6/uL 3.77-5.28 *8 Hemoglobin [L] 10.2 g/dL 11.1-15.9 *9 Hematocrit [L] 30.4 % 34.0-46.6 *10 MCV 89 fL 79-97 *11 MCH 29.7 pg 26.6-33.0 *12 MCHC 33.6 g/dL 31.5-35.7 *13 RDW 12.4 % 11.7-15.4 *14 Platelets 283 x10E3/uL 150-450 *15 Neutrophils 62 % Not Estab. *16 Lymphs 28 % Not Estab. *17 Monocytes 5 % Not Estab. *18 Eos 3 % Not Estab. *19 Basos 1 % Not Estab. *20 ! Immature Cells <No Reported Value> *21 Neutrophils (Absolute) 5.5 x10E3/uL 1.4-7.0 *22 Lymphs (Absolute) 2.4 x10E3/uL 0.7-3.1 *23 Monocytes(Absolute) 0.5 x10E3/uL 0.1-0.9 *24 Eos (Absolute) 0.3 x10E3/uL 0.0-0.4 *25 Baso (Absolute) 0.1 x10E3/uL 0.0-0.2 *26 ! Immature Granulocytes 1 % Not Estab. *27 ! Immature Grans (Abs) 0.1 x10E3/uL 0.0-0.1 *28 ! NRBC <No Reported Value> *29 Hematology Comments: <No Reported Value> *30 Tests: (2) Hepatic Function Panel (7) ([id number]) Protein, Total 6.1 g/dL 6.0-8.5 *31 Albumin [L] 3.4 g/dL 3.8-4.8 *32 Bilirubin, Total <0.2 mg/dL 0.0-1.2 *33 Bilirubin, Direct 0.07 mg/dL 0.00-0.40 *34 Alkaline Phosphatase [H] 152 IU/L 39-117 *35 AST (SGOT) 14 IU/L 0-40 *36 ALT (SGPT) 7 IU/L 0-32 *37 Tests: (3) Bile Acids, Fractionated LCMS ([id number]) ! Ursodeoxycholic Acids <0.10 umol/L *38 Reference Range: All Ages: <1.9 ! Cholic Acids 0.50 umol/L *39 Reference Range: All Ages: <2.2 ! Chenodeoxycholic Acids 1.2 umol/L *40 Reference Range: All Ages: <5.8 ! Deoxycholic Acids 0.30 umol/L *41 Reference Range: All Ages: <3.3 ! Total Bile Acids 2.0 umol/L *42 This test was developed and its performance characteristics determined by [facility]. It has not been cleared or approved by the Food and Drug Administration. Reference Range: All Ages: <9.2 Tests: (4) Ct, Ng, Trich vag by SANDY ([id number]) Chlamydia by SANDY Negative Negative *43 Gonococcus by SANDY Negative Negative *44 Trich vag by SANDY Negative Negative *45 Tests: (5) HB Solu + Rflx [facility] ([id number]) Hemoglobin (Hgb) Solubility Negative Negative *46 Tests: (6) HIV Ag/Ab with Reflex ([id number]) HIV Screen 4th Generation wRfx Non Reactive Non Reactive *47 Tests: (7) Gest. Diabetes 1-Hr Screen ([id number]) ! Gestational Diabetes Screen 121 mg/dL 65-139 *48 According to ADA, a glucose threshold of >139 mg/dL after 50-gram load identifies approximately 80% of women with gestational diabetes mellitus, while the sensitivity is further increased to approximately 90% by a threshold of >129 mg/dL. Tests: (8) HCV Ab w/Rflx to Verification ([id number]) ! HCV Ab <0.1 s/co ratio 0.0-0.9 *49 Tests: (9) Comment: ([id number]) ! Comment: SPRCS *50 Non reactive HCV antibody screen is consistent with no HCV infection, unless recent infection is suspected or other evidence exists to indicate HCV infection. Tests: (10) Urine Culture, Routine ([id number]) Urine Culture, Routine Final report *51 Tests: (11) Result ([id number]) ! Result 1 MUG *52 Mixed urogenital danyelle 10,000-25,000 colony forming units per mL Medications and Allergies Allergies Allergy/AdvReac Type Severity Reaction Status Date / Time sea food Allergy Headache Uncoded 04/09/20 16:35 Home Medications Medication Instructions Recorded Confirmed Last Taken Type Doxylamine Succinate/Vit B6 1 each PO QHS PRN #30 tablet. 08/03/16 Unknown Rx [Heriberto Hernandez 10-10 mg Tablet] Lulú Root [Lulú] 250 mg PO QID PRN #30 capsule 08/03/16 Unknown Rx Vit Calc,Iron,Folic 1 each PO QDAY #30 tablet 08/03/16 Unknown Rx [ Vitamins] Metoclopramide [Reglan] 10 mg PO TID PRN #30 tab 02/24/18 Unknown Rx 21/Iron Fu/Folic Acid 1 each PO DAILY #30 tablet 02/24/18 Unknown Rx [ Complete Caplet] Metoclopramide [Reglan] 10 mg PO Q12H PRN #12 tab 04/09/20 Unknown Rx 21/Iron Fu/Folic Acid 1 each PO DAILY #30 tablet 04/09/20 Unknown Rx [ Complete Caplet] Active Meds: Active Medications Acetaminophen (Acetaminophen 325 Mg Tab) 650 mg PO Q4H PRN PRN Reason: Pain, Mild (1-3) Carboprost Tromethamine (Carboprost Tromethamine 250 Mcg/1 Ml Inj) 250 mcg IM ONCE PRN PRN Reason: Uterine Bleeding Ephedrine Sulfate (Ephedrine Sulfate 50 Mg/1 Ml Inj) 10 mg IV Q2M PRN PRN Reason: Hypotension Fentanyl (Fentanyl 100 Mcg/2 Ml Inj) 100 mcg IV Q2H PRN PRN Reason: Pain,Severe (7-10) LABOR PAIN Oxytocin/Sodium Chloride (Pitocin/Ns 30 Unit/500ml) 30 units in 500 mls @ 2 mls/hr IV TITR YUNIOR; Protocol Lactated Ringer's (Lactated Ringers) 1,000 mls @ 125 mls/hr IV DIRECT YUNIOR Oxytocin/Sodium Chloride (Pitocin/Ns 30 Unit/500ml) 30 units in 500 mls @ 40 mls/hr IV TITR YUNIOR; Protocol Fentanyl/Bupivacaine/Sodium Chlor (Fentanyl-Bupiv 2 Mcg/Ml-0.125%) 200 mcg in 100 mls @ 12 mls/hr EPIDURAL TITR YUNIOR; Protocol Loperamide HCl (Loperamide 2 Mg Cap) 2 mg PO ONCE PRN PRN Reason: give with Hemabate Methylergonovine Maleate (Methylergonovine Maleate 0.2 Mg/Ml Vial) 0.2 mg IM ONCE PRN PRN Reason: Uterine Bleeding Mineral Oil (Mineral Oil 30 Ml Oral Liqd) 30 ml PO QHS PRN PRN Reason: Constipation Misoprostol (Misoprostol 200 Mcg Tab) 800 mcg AR ONCE PRN PRN Reason: Uterine Bleeding Naloxone HCl (Naloxone 0.4 Mg/1 Ml Inj) 0.1 mg IV Q2MIN PRN PRN Reason: Res Rate </= 8 or 02 SAT < 92% Naloxone HCl (Naloxone 2 Mg/2 Ml Inj) 0.2 mg IV Q5M PRN PRN Reason: Respiratory sedation Ondansetron HCl (Ondansetron 4 Mg/2 Ml Inj) 4 mg IV Q8H PRN PRN Reason: Nausea And Vomiting Oxytocin (Oxytocin 10 Unit/1 Ml Inj) 10 unit IM ONCE PRN PRN Reason: Uterine Bleeding Promethazine HCl (Promethazine 25 Mg Tab) 25 mg PO Q6H PRN PRN Reason: Nausea And Vomiting Terbutaline Sulfate (Terbutaline 1 Mg/1 Ml Inj) 0.25 mg SUB-Q ONCE PRN PRN Reason: Hyperstimulation/Hypertonicity - Vital Signs Vital signs: Vital Signs Pulse BP 83 124/79 06/30/20 07:02 06/30/20 07:02 Temp Pulse Resp BP Pulse Ox 86 131/78 100 06/30/20 07:58 06/30/20 07:58 06/30/20 07:53 Results Result Diagrams: 06/30/20 06:30 Abnormal lab results 06/30/20 Range/Units 06:30 RBC 3.57 L (3.65-5.03) M/mm3 MCHC 36 H (30-34) % All other labs normal. <DAHLIA MONAHAN - Last Filed: 06/30/20 08:27> History of Present Illness Date of examination: 06/30/20 (Last name in office chart is Farhan) Date of admission: 06/30/20 06:23 Chief complaint: My water broke at 0515am for clear fluid and I started having ctxs after that. History of present illness: Pt is 39.6 weeks with c/o SROM and ctxs that started at 0515am. Late care started at 35.4 wks. Past History Past Medical History: no pertinent history Past Surgical History: D&C (2010, 2015) Family/Genetic History: none Social history: no significant social history - Obstetrical History Expected Date of Delivery: 07/01/20 Actual Gestation: 39 Week(s) 6 Day(s) : 4 Para: 1 Hx # Term Pregnancies: 1 Number of Pregnancies: 0 Spontaneous Abortions: 1 Induced : 1 Number of Living Children: 1 Medications and Allergies Active Meds: Active Medications Acetaminophen (Acetaminophen 325 Mg Tab) 650 mg PO Q4H PRN PRN Reason: Pain, Mild (1-3) Carboprost Tromethamine (Carboprost Tromethamine 250 Mcg/1 Ml Inj) 250 mcg IM ONCE PRN PRN Reason: Uterine Bleeding Ephedrine Sulfate (Ephedrine Sulfate 50 Mg/1 Ml Inj) 10 mg IV Q2M PRN PRN Reason: Hypotension Fentanyl (Fentanyl 100 Mcg/2 Ml Inj) 100 mcg IV Q2H PRN PRN Reason: Pain,Severe (7-10) LABOR PAIN Oxytocin/Sodium Chloride (Pitocin/Ns 30 Unit/500ml) 30 units in 500 mls @ 2 mls/hr IV TITR YUNIOR; Protocol Lactated Ringer's (Lactated Ringers) 1,000 mls @ 125 mls/hr IV DIRECT YUNIOR Oxytocin/Sodium Chloride (Pitocin/Ns 30 Unit/500ml) 30 units in 500 mls @ 40 mls/hr IV TITR YUNIOR; Protocol Loperamide HCl (Loperamide 2 Mg Cap) 2 mg PO ONCE PRN PRN Reason: give with Hemabate Methylergonovine Maleate (Methylergonovine Maleate 0.2 Mg/Ml Vial) 0.2 mg IM ONCE PRN PRN Reason: Uterine Bleeding Mineral Oil (Mineral Oil 30 Ml Oral Liqd) 30 ml PO QHS PRN PRN Reason: Constipation Misoprostol (Misoprostol 200 Mcg Tab) 800 mcg AR ONCE PRN PRN Reason: Uterine Bleeding Naloxone HCl (Naloxone 0.4 Mg/1 Ml Inj) 0.1 mg IV Q2MIN PRN PRN Reason: Res Rate </= 8 or 02 SAT < 92% Ondansetron HCl (Ondansetron 4 Mg/2 Ml Inj) 4 mg IV Q8H PRN PRN Reason: Nausea And Vomiting Oxytocin (Oxytocin 10 Unit/1 Ml Inj) 10 unit IM ONCE PRN PRN Reason: Uterine Bleeding Promethazine HCl (Promethazine 25 Mg Tab) 25 mg PO Q6H PRN PRN Reason: Nausea And Vomiting Terbutaline Sulfate (Terbutaline 1 Mg/1 Ml Inj) 0.25 mg SUB-Q ONCE PRN PRN Reason: Hyperstimulation/Hypertonicity Review of Systems All systems: negative - Physical Exam Breasts: Positive: deferred Cardiovascular: Regular rate Lungs: Positive: Normal air movement Abdomen: Positive: normal appearance Genitourinary (Female): Positive: normal external genitalia, normal perenium Vulva: both: normal Vagina: Positive: normal moisture Uterus: Positive: normal size Extremities: Positive: normal - Obstetrical FHR: category 1 Uterine Contraction Monitor Mode: External Cervical Dilatation: 10 (Small amount of clear fluid noted on pad under patient and exam glove. ) Cervical Effacement Percentage: 100 station: 0 Uterine Contraction Pattern: Regular Uterine Tone Measurement Phase: Resting Uterine Contraction Intensity: Moderate Results Result Diagrams: 06/30/20 06:30 All other labs normal. GBS NEGATIVE HBsAg Screen Negative Negative *1 RPR Non Reactive Non Reactive *2 Rubella Antibodies, IgG 1.29 index Immune >0.99 *3 Non-immune <0.90 Equivocal 0.90 - 0.99 Immune >0.99 ABO Grouping A *4 Rh Factor Negative *5 Please note: Prior records for this patient's ABO / Rh type are not available for additional verification. Antibody Screen Negative Negative *6 Tests: (4) Ct, Ng, Trich vag by SANDY ([id number]) Chlamydia by SANDY Negative Negative *43 Gonococcus by SANDY Negative Negative *44 Trich vag by SANDY Negative Negative *45 Tests: (5) HB Solu + Rflx Fra ([id number]) Hemoglobin (Hgb) Solubility Negative Negative *46 Tests: (6) HIV Ag/Ab with Reflex ([id number]) HIV Screen 4th Generation wRfx Non Reactive Non Reactive *47 Tests: (7) Gest. Diabetes 1-Hr Screen ([id number]) ! Gestational Diabetes Screen 121 mg/dL 65-139 *48 Tests: (8) HCV Ab w/Rflx to Verification ([id number]) ! HCV Ab <0.1 s/co ratio 0.0-0.9 *49 Tests: (9) Comment: ([id number]) ! Comment: SPRCS *50 Non reactive HCV antibody screen is consistent with no HCV infection, unless recent infection is suspected or other evidence exists to indicate HCV infection. Tests: (10) Urine Culture, Routine ([id number]) Urine Culture, Routine Final report *51 Tests: (11) Result ([id number]) ! Result 1 MUG *52 Mixed urogenital danyelle 10,000-25,000 colony forming units per mL Assessment and Plan A: 30 y.o. @ 39.6 wks. Active labor. Cervical exam /0. - Patient Problems (1) with 39 completed weeks gestation Current Visit: Yes Status: Acute Plan to address problem: Admit to labor and delivery. Initiate IV. Draw admission labs. IV fluid bolus for epidural placement. Anticipate . (2) Late care in third trimester Current Visit: Yes Status: Acute Plan to address problem: Case management consult ordered. UDS ordered. (3) Type A blood, Rh negative Current Visit: Yes Status: Acute Plan to address problem: Will need Rhogam work up after delivery.
[2020-06-30] MEDS ORDERED: OXYTOCIN DRIP 30 UNITS/500 ML BAG IV SCH ×3 (07:00→14:31)
[2020-06-30] MEDS ORDERED: NALOXONE 2 MG/2 ML INJ IV PRN (07:14)
--- NOTE | 2020-06-30 07:30 | Anesthesia Consultation ---
Anesthesia Consult and Med Hx Date of service: 06/30/20 - Airway Anesthetic Teeth Evaluation: Good ROM Head & Neck: Adequate Mental/Hyoid Distance: Adequate Mallampati Class: Class II Intubation Access Assessment: Probably Good - Pulmonary Exam CTA: Yes - Cardiac Exam Cardiac Exam: RRR - Pre-Operative Health Status ASA Pre-Surgery Classification: ASA2 Proposed Anesthetic Plan: Epidural - Pulmonary Hx Asthma: No - Cardiovascular System Hx Hypertension: No - Central Nervous System Hx Seizures: No Hx Psychiatric Problems: No - Endocrine Hx Renal Disease: No Hx Hypothyroidism: No Hx Hyperthyroidism: No - Hematic Hx Anemia: No Hx Sickle Cell Disease: No - Other Systems Hx Alcohol Use: No
--- NOTE | 2020-06-30 07:31 | Progress Note ---
Labor Epidural - Labor Epidural Start Time: 07:15 Stop Time: 07:23 Performed by:: ALEX BUCKNER Procedure: Patient is requesting epidural for labor pain. H&P, and labs reviewed. Procedure explained, questions answered, consent obtained. Patient in sitting position with blood pressure cuff and pulse ox on and working. Timeout performed immediately before start of procedure. Sterile chlorahexadine 0.5% prep/drape. 3 mL 1% lidocaine skin wheal at L[3]-L[4]. 18-gauge Repair Reporttead epidural needle advanced to [id number] with saline at [7] cm. 27-gauge spinal needle advanced until clear, free-flowing CSF. Intrathecal dexmedetomidine [10] mcg administered and needle removed. Epidural catheter advanced to [12] cm, negative aspiration for blood and csf, negative test dose 3 ml 1.5% lidocaine with epinephrine. Sterile steri-strips and tegaderm applied, followed by tape reinforcement. Patient tolerated procedure well.
[2020-06-30] MEDS ORDERED: fentaNYL-BUPIV 2 MCG/ML-0.125% 200 MCG/100 ML BAG EPIDURAL SCH (08:00)
--- NOTE | 2020-06-30 08:57 | Progress Note ---
Assessment and Plan Will start to push - Patient Problems (1) Late care in third trimester Current Visit: Yes Status: Acute (2) with 39 completed weeks gestation Current Visit: Yes Status: Acute (3) Type A blood, Rh negative Current Visit: Yes Status: Acute Subjective - Subjective Date of service: 06/30/20 Principal diagnosis: IUP@39 wga labor Patient reports: no new complaints Objective - Vital Signs Vital Signs: Vital Signs - 12hr 06/30/20 06/30/20 06/30/20 07:02 07:18 07:20 Pulse Rate 83 101 H 87 Blood Pressure 124/79 134/63 139/82 O2 Sat by Pulse Oximetry 06/30/20 06/30/20 06/30/20 07:22 07:23 07:24 Pulse Rate 90 83 90 Blood Pressure 139/78 132/77 O2 Sat by Pulse 97 Oximetry 06/30/20 06/30/20 06/30/20 07:27 07:28 07:30 Pulse Rate 77 82 102 H Blood Pressure 119/80 118/79 O2 Sat by Pulse 99 Oximetry 06/30/20 06/30/20 06/30/20 07:32 07:33 07:34 Pulse Rate 110 H 89 82 Blood Pressure 99/69 129/82 O2 Sat by Pulse 99 Oximetry 06/30/20 06/30/20 06/30/20 07:36 07:38 07:42 Pulse Rate 102 H 69 73 Blood Pressure 118/76 123/64 112/74 O2 Sat by Pulse 100 Oximetry 06/30/20 06/30/20 06/30/20 07:43 07:44 07:46 Pulse Rate 78 74 Blood Pressure 120/71 119/76 O2 Sat by Pulse 100 Oximetry 06/30/20 06/30/20 06/30/20 07:48 07:49 07:51 Pulse Rate 100 H 105 H 87 Blood Pressure 112/77 112/74 O2 Sat by Pulse 59 L Oximetry 06/30/20 06/30/20 06/30/20 07:52 07:53 07:54 Pulse Rate 109 H 95 H 118 H Blood Pressure 107/69 100/61 O2 Sat by Pulse 100 Oximetry 06/30/20 06/30/20 06/30/20 07:56 07:58 08:00 Pulse Rate 99 H 75 63 Blood Pressure 99/61 131/78 119/66 O2 Sat by Pulse 100 Oximetry 06/30/20 06/30/20 06/30/20 08:02 08:03 08:04 Pulse Rate 75 78 86 Blood Pressure 114/74 126/81 O2 Sat by Pulse 100 Oximetry 06/30/20 06/30/20 06/30/20 08:06 08:08 08:10 Pulse Rate 75 71 90 Blood Pressure 115/82 128/59 124/68 O2 Sat by Pulse 100 Oximetry 06/30/20 06/30/20 06/30/20 08:12 08:13 08:18 Pulse Rate 78 71 87 Blood Pressure 116/68 O2 Sat by Pulse 100 100 Oximetry 06/30/20 06/30/20 06/30/20 08:24 08:42 08:47 Pulse Rate 88 104 H 97 H Blood Pressure 100/56 O2 Sat by Pulse 100 100 100 Oximetry - Exam Cardiovascular: Regular rate Lungs: Normal air movement Abdomen: Present: soft Vulva: both: normal Uterus: Absent: tenderness FHR: category 1 Cervical Dilatation: 10 Cervical Effacement Percentage: 100 station: +1 Uterine Contraction Pattern: Regular - Labs Labs: Abnormal Labs 06/30/20 06:30 RBC 3.57 L MCHC 36 H Laboratory Results - last 24 hr 06/30/20 06/30/20 06:30 06:30 WBC 7.9 RBC 3.57 L Hgb 11.0 Hct 30.8 MCV 86 MCH 31 MCHC 36 H RDW 13.2 Plt Count 331 Syphilis IgG Antibody Nonreactive
--- NOTE | 2020-06-30 10:33 | Procedure Note ---
OB Delivery Note - Delivery Date of Delivery: 06/30/20 Surgeon: NICOLAS MONTIEL - Vaginal Delivery presentation: vertex Delivery position: OA Delivery monitor: external FHT, external uterine Route of delivery: Delivery placenta: spontaneous (intact) Delivery laceration: 1st degree (Repaired with 3-0 vicryl, usual fashion) Delivery repair: vicryl Anesthesia: epidural - Infant A at 1 minute: 8 at 5 minutes: 9 Infant Gender: Male (7 lbs 7oz)
[2020-06-30] MEDS ORDERED: KETOROLAC 30 MG/1 ML INJ IV ONE (11:00)
[2020-06-30] MEDS ORDERED: PROMETHAZINE 25 MG RECT SUPP PR PRN (14:31)
[2020-06-30] MEDS ORDERED: WITCH HAZEL/ GLYCERIN PAD TP PRN (14:31)
[2020-06-30] MEDS ORDERED: MAGNESIUM HYDROXIDE (MOM) ORAL LIQD UDC PO PRN (14:31)
[2020-06-30] MEDS ORDERED: diphenhydrAMINE 25 MG CAP PO PRN (14:31)
[2020-06-30] MEDS ORDERED: LANOLIN/ZINC/DIMETHICONE (LANSINOH) 7 GM TP PRN (14:31)
[2020-06-30] MEDS ORDERED: ACETAMINOPHEN 500 MG TAB PO PRN (14:47)
[2020-06-30] MEDS: IBUPROFEN 600 MG TAB PO SCH ×2 (16:10→23:36)
[2020-06-30 19:52] LABS: Amphetamine Screen,Urine Negative; Benzodiazepines Screen,Urine Negative; Cocaine Screen,Urine Negative; Methadone Screen,Urine Negative; Opiate Screen,Urine Negative
[2020-06-30 20:12] LABS: Cannabinoid Screen,Urine Positive
[2020-07-01 03:01] LABS: Hematocrit 24.7 % (30.3-42.9); Hemoglobin 8.8 gm/dl (10.1-14.3)
[2020-07-01] MEDS: IBUPROFEN 600 MG TAB PO SCH ×2 (05:26→12:00)
[2020-07-01] MEDS ORDERED: TETANUS,DIPH,PERTUSS(ACELL) VACCINE 0.5 ML SYRINGE IM ONE (06:00)
--- NOTE | 2020-07-01 11:48 | Post Anesthesia Evaluation ---
- Post Anesthesia Evaluation Patient Participated: Yes Airway Patent: Yes Stable Respiratory Function: Yes Nausea/Vomiting: No Temp > 96.8F: Yes Pain Manageable: Yes Adequeate Hydration: Yes Anesthesia Complications: No Block Receding Appropriately: Yes
[2020-07-01] MEDS ORDERED: medroxyPROGESTERone ACETATE 150 MG/ML SYRINGE IM ONE ×2 (12:09→17:00)
--- NOTE | 2020-07-01 12:14 | Discharge Summary ---
Providers - Providers Date of Admission: 06/30/20 06:23 Date of discharge: 07/01/20 Attending physician: NICOLAS MONTIEL 06/30/20 08:29 Consult to Case Management [CONS] Routine Services Needed at Discharge: Parachute Taper Notified:: yes Phone number called:: [phone] Was contact made?: No Time called:: 14:34 Comment:: computer input Additional Physician Instructions: Late care. Started care at 35.4 wks. 06/30/20 14:31 Consult to Clay Machine Operator [CONS] Routine Reason For Exam: assistance with , SNS Primary care physician: NICOLAS MONTIEL Hospitalization Reason for admission: active labor Delivery: Laceration: 1st degree complications: none baby: male Hospital course: Patient resting in bed, no complaints. Minimal lochia Breasts soft, NT, no engorgemeny Abd: soft, NT; FF below umbilicus Exts: soft, no edema, NT Patient desires discharge home Condition at discharge: Good Disposition: DC-01 TO HOME OR SELFCARE - Discharge Diagnoses (1) Late care in third trimester Status: Resolved (2) with 39 completed weeks gestation Status: Resolved (3) Type A blood, Rh negative Status: Chronic Comment: Baby RH negative per patient and RN, therefore Rhogam not given. Patient desires Depoprovera prior to discharge home (4) Anemia Status: Acute Qualifiers: Other causes of anemia: acute posthemorrhagic Comment: Asymptomatic Plan - Discharge Medications Prescriptions: Docusate Sodium [Colace] 100 mg PO BID PRN #30 capsule PRN Reason: Constipation Lidocain2.5%/Prilocai2.5% [Emla] 5 gm TP ONCE #1 tube Ferrous Sulfate [Ferrous Sulfate 324 MG] 324 mg PO BID #90 tablet.dr - Provider Discharge Summary Activity: no sex for 6 weeks, no heavy lifting 4 weeks, no strenuous exercise Diet: routine Instructions: routine Additional instructions: [] Smoking cessation referral if applicable(refer to patient education folder for contact #) [] Refer to [facility]'s [facility] Booklet Call your doctor immediately for: * Fever > 100.5 * Heavy vaginal bleeding ( >1 pad per hour) * Severe persistent headache * Shortness of breath * Reddened, hot, painful area to leg or breast * Drainage or odor from incision. * Keep incision clean and dry at all times and follow doctor's instructions regarding bathing/showering Call office tomorrow to schedule circumcision - Follow up plan Follow up: NICOLAS MONTIEL MD [Primary Care Provider] - 7 Days
[2020-07-01 15:59] VITALS: BP 126/72
== END 2020-07-01 16:43 | disposition home or self-care (01) | DRG 775 ==
LOC: TRG 05:35 → APU 06:22 → TRG 06:23 → LD 06:23 → OB 14:30
PROVIDERS: ADMIT Obstetrics & Gynecology; ATTEND Obstetrics & Gynecology
PROC: 0HQ9XZZ Repair Perineum Skin, External Approach (ICD-10-PCS; principal; 2020-06-30)
PROC: 10E0XZZ Delivery of Products of Conception, External Approach (ICD-10-PCS; 2020-06-30)
PROC: 3E0R3BZ Introduction of Anesthetic Agent into Spinal Canal, Percutaneous Approach (ICD-10-PCS; 2020-06-30)
PROC: 00HU33Z Insertion of Infusion Device into Spinal Canal, Percutaneous Approach (ICD-10-PCS; 2020-06-30)
DX: O70.0 First degree perineal laceration during delivery (principal); Z20.822 Contact with and (suspected) exposure to COVID-19; Z3A.39 39 weeks gestation of pregnancy; Z37.0 Single live birth; D62 Acute posthemorrhagic anemia
CPT/HCPCS: 36415; 59025; 80307; 85014; 85018; 85027; 86592; 86850; 86870; 86900; 86901; 96360; G0378; J1050; J1885; U0003